=== PATIENT | female | born 1980 | race Asian ===

== ENCOUNTER → 2016-04-15 | Outpatient (CLI) | payer OTHER ==
--- NOTE | 2016-04-15 13:24 | DI ---
PELVIC ULTRASOUND, 04/15/2016 8:55 AM Clinical History: Right lower quadrant pain. Previous Exam: 02/04/2016. Technique: Transabdominal and transvaginal scans are performed. The uterus measures 40 x 45 x 75 mm. The central uterine stripe measures 11 mm. There is a mass in th e right posterior aspect of the body of the uterus that measures approximately 15-20 mm in diameter a nd is slightly echogenic. It was present on the earlier exam although not as discretely defined as on the current study. This probably is a fibroid. The ovaries are normal. The right ovary was visualize d only on the transabdominal scans. There are no fluid collections or masses. Readin. There is a roughly 15-20 mm slightly echogenic mass in the right posterior aspect of the body of the uterus that is consistent with a fibroid. The central uterine stripe measures 11 mm. 2. Both ovaries are normal.
== END ==
LOC: US 08:51
PROVIDERS: ATTEND Obstetrics & Gynecology
DX: R10.31 Right lower quadrant pain (principal); D25.9 Leiomyoma of uterus, unspecified
CPT/HCPCS: 76830; 76856

== ENCOUNTER → 2016-05-11 | Outpatient (CLI) | payer OTHER | LOC: MOB LAB 14:38 | PROVIDERS: ATTEND Obstetrics & Gynecology | DX: N88.8 Other specified noninflammatory disorders of cervix uteri (principal); N76.0 Acute vaginitis | CPT/HCPCS: 87491; 87591 ==